=== PATIENT | male | born 1990 | race Caucasian/White ===

== ENCOUNTER 2024-12-14 10:37 | Emergency (ER) | payer BC, SELFPAY ==
[2024-12-14 10:37] VITALS: BP 151/102; PULSE 69; RESP 16; TEMP 36.5; O2SAT 100; BMI 34.2
--- NOTE | 2024-12-14 11:26 | EX.ED.DYSGE1 ---
HPI History of Present Illness Chief Complaint: Abd Pain Informant: patient and spouse/S.O. Narrative Narrative: 33-year-old male presenting to the emergency room with a chief complaint of abdominal cramping. Patient notes suprapubic abdominal cramping for 1 week. He notes more frequent bowel movements that have been formed but small amounts. He denies any urinary symptoms. No reported fever. He does note nausea. He states he went to urgent care and was sent to the emergency department. He notes no prior abdominal surgeries. No history of kidney stones. He denies any black bloody or mucousy stools. No weight loss. [facility] Medical History Sensorineural hearing loss Anxiety and depression Asthma Obesity Home Medications ?Medication ?Instructions ?Recorded ?Last Taken ?Type albuterol sulfate 90 mcg/actuation 6.7 g IH PRN ##1 02/24/14 Unknown Rx aerosol inhaler (Proventil HFA) prednisone 20 mg tablet 40 mg (2 x 20 mg) PO DAILY ##7 02/24/14 Unknown Rx amoxicillin 875 mg-potassium 875 mg PO Q12H #20 TABLETS 12/14/24 Unknown Rx clavulanate 125 mg tablet hydrocodone-acetaminophen 5-325mg 1 tab PO Q4H PRN PRN Pain 3 days 12/14/24 Unknown Rx 5mg-325mg #12 TABLETS ibuprofen 600 mg tablet 600 mg PO Q8H PRN PRN pain #20 12/14/24 Unknown Rx TABLETS sertraline 50 mg tablet 50 mg PO DAILY 12/14/24 Unknown History Allergy/AdvReac Type Severity Reaction Status Date / Time No Known Allergies Allergy Verified 12/14/24 10:37 Social History Smoking Status: Never smoker ROS ROS ED Constitutional Constitutional ED: Denies chills, fever(s) or weight loss Eyes Eyes: Denies change in vision or diplopia ENT ENT ED: Denies ear pain, rhinorrhea or sore throat Cardiovascular Cardiovascular: Denies chest pain, orthopnea, palpitations or racing heartbeat Respiratory/Chest Respiratory/Chest: Denies cough, dyspnea or orthopnea Gastrointestinal Gastrointestinal: Reports abdominal pain, nausea and other Details: See history of present illness ; Denies diarrhea or vomiting Genitourinary Genitourinary ED: Denies dysuria, hematuria or urinary frequency Musculoskeletal Musculoskeletal: Denies arthralgias or myalgias Integumentary Denies abscess or rash Neurologic Neurologic: Denies headache(s) or weakness Psychiatric Psychiatric: Denies anxiety, depression, suicidal ideation or suicidal thoughts Endocrine Endocrinology: Denies polydipsia, polyphagia or polyuria Allergic/Immunologic Allergic/Immunologic ED: Denies mouth swelling, tongue swelling or urticaria EXAM Physical Exam Const Vital Signs: 12/14/24 10:37 12/14/24 12:37 Temperature 97.7 F L Temperature Source Oral Pulse Rate 69 87 Respiratory Rate 16 16 Blood Pressure 151/102 H 144/93 H Blood Pressure Mean 118 110 Pulse Ox 100 99 Oxygen Delivery Method Room Air Positive well nourished and well developed General Appearance ED: well developed and NAD HEENT Reports normocephalic, head/scalp atraumatic and moist mucous membranes Eyes PERRL and EOMs intact bilaterally Neck no lymphadenopathy, supple and no JVD Resp normal respiratory effort and clear to auscultation bilaterally Cardio regular rate, regular rhythm and no murmurs GI Auscultation: hypoactive bowel sounds Palpation: soft and tender RLQ; Negative for guarding or rebound tenderness present Back/Spine no CVA tenderness and normal ROM Extremity normal to inspection General Extremety ED: Negative for edema General Extremity: Negative for edema Neuro oriented x3 and CN's II-XII intact bilaterally Sensorium / Orientation: alert Motor Exam: strength 5/5 throughout Psych mental status grossly normal Mood & Affect: Negative for depressed or tearful Skin no rashes or lesions noted and no wounds MDM MDM MDM Narrative Medical decision making narrative: Differential diagnosis includes but not limited to diverticulitis colitis volvulus UTI kidney stone appendicitis intra-abdominal abscess/perforation bowel obstruction Patient's white count 9.7 creatinine 0[address] of the pelvis with IV contrast was obtained. This demonstrates focal area of inflammation in the sigmoid colon. Please see radiologist read for full details. Spoke with the patient and his . He is otherwise well-appearing afebrile with normal white count. He has no diagnosis of colitis. I will place him on Augmentin as well as anti-inflammatories and pain medication. We recommend follow-up colonoscopy. We talked about return instructions. We talked about complications. History & Record Review Discussion w/independent historian: Patient and Significant other Lab Data Attestation: I reviewed the patient's lab results. Labs: Laboratory Results - last 24 hr 12/14/24 12/14/24 11:06 11:50 WBC 9.7 RBC 4.92 Hgb 14.3 Hct 43.6 MCV 88.6 MCH 29.1 MCHC 32.8 RDW Std Deviation 42.0 RDW Coeff of Yury 12.9 Plt Count 316 MPV 9.6 Immature Gran % (Auto) 0.300 Neut % (Auto) 63.6 Lymph % (Auto) 20.7 Young % (Auto) 11.0 H Eos % (Auto) 4.2 Baso % (Auto) 0.2 Absolute Neuts (auto) 6.2 Absolute Lymphs (auto) 2.01 Nucleated RBC % 0 Sodium 137 Potassium 4.1 Chloride 101 Carbon Dioxide 25.4 Anion Gap 11 BUN 13 Creatinine 0.99 Estim Creat Clear Calc 133.29 Est GFR (MDRD) Non-Af 103 BUN/Creatinine Ratio 12.9 Glucose 97 Calcium 9.1 Urine Color Yellow Urine Clarity Clear Urine pH 7.0 Ur Specific [place] 1.010 Urine Protein 15 H Urine Glucose (UA) Normal Urine Ketones Negative Urine Occult Blood Negative Urine Nitrite Negative Urine Bilirubin Negative Urine Urobilinogen Normal Ur Leukocyte Esterase Negative Urine RBC 0 SEEN Urine WBC 0 SEEN Ur Squamous Epith Cells 0 SEEN Urine Bacteria 0 SEEN Urine Mucus 0 SEEN Radiography Diagnostic Testing: Clinical Impression(s) from Imaging Studies Abdomen/Pelvis CT 12/14/24 11:50 IMPRESSION: 1. Normal appendix. 2. Mucosal thickening in the descending colon and sigmoid colon consistent with colitis. No bowel obstruction or abscess. 3. Hepatomegaly with fatty infiltration. Reading Location: [facility] Discharge Plan Triage Chief Complaint: Abd Pain ED Provider: Romain Boyer Dx/Rx/DC Orders Clinical Impression: Abdominal pain, Colitis Instructions: Diverticulitis Dc Prescriptions: New ibuprofen 600 mg tablet 600 mg PO Q8H PRN PRN (Reason: pain) Qty: 20 0RF amoxicillin-pot clavulanate 875-125 mg tablet 875 mg PO Q12H Qty: 20 0RF hydrocodone-acetaminophen 5-325 mg tablet 1 tab PO Q4H PRN PRN (Reason: Pain) 3 Days Qty: 12 0RF No Action prednisone 20 MG tablet 40 mg PO DAILY Qty: 7 0RF albuterol sulfate [Proventil HFA] 6.7 GM HFA aerosol inhaler 6.7 g IH PRN Qty: 1 2RF sertraline 50 mg tablet 50 mg PO DAILY Primary Care Provider: Rory Mckinney Referrals: Rory Mckinney DO [Primary Care Provider] - 3-5 Days if not improving Friend,DO Ray [Med Staff - Active Staff] - As soon as possible (for colonoscopy) Print Language: Maori Disposition Disposition: Home, Self Care Discharge Date/Time: 12/14/24 13:52
[2024-12-14 11:38] LABS: Absolute Lymphocyte Count 2.01 X10^3/uL (0.83-4.51); Absolute Neutrophil Count 6.2 X10^3/uL (2.0-7.7); Basophil# 0.02 X10^3/uL; Basophil% 0.2 % (0-1); Eosinophil# 0.41 X10^3/uL; Eosinophils% 4.2 % (0-5); Hematocrit 43.6 % (40-54); Hemoglobin 14.3 g/dL (13.0-16.5); Lymphocyte # 2.01 X10^3/ul (0.83-4.51); Lymphocyte % 20.7 % (19-41); Mean Corp Hgb Conc 32.8 g/dL (32-36); Mean Corpuscular Hgb 29.1 pg (27.0-32.0); Mean Corpuscular Volume 88.6 fL (80-94); Mean Platelet Vol. 9.6 fl (6.2-12.0); Monocyte# 1.07 X10^3/uL; NRBC Flagged by Analyzer 0 % (0-5); Neutrophil # 6.16 X10^3/uL (2.7-7.7); Neutrophil % 63.6 % (47-70); Platelet Count 316 K/mm3 (150-450); RBC Distribution Width CV 12.9 % (11.6-14.6); Red Blood Count 4.92 M/mm3 (4.6-6.2); White Blood Count 9.7 K/mm3 (4.4-11.0)
--- NOTE | 2024-12-14 11:50 | CT_ITS ---
EXAM: CT Abdomen, Pelvis and Lumbar Spine With Intravenous Contrast CLINICAL INDICATION: ABDOMINAL PAIN TECHNIQUE: Axial computed tomography images of the abdomen, pelvis and lumbar spine with intravenous contrast. This CT exam was performed using one or more of the following dose reduction techniques: automated exposure control, adjustment of the mA and/or kV according to patient size, and/or use of iterative reconstruction technique. COMPARISON: No relevant prior studies available. FINDINGS: LUNG BASES: Unremarkable. No mass. No consolidation. ABDOMEN: LIVER: Hepatomegaly with fatty infiltration. GALLBLADDER AND BILE DUCTS: Unremarkable. No calcified stones. No ductal dilation. PANCREAS: Unremarkable. No mass. No ductal dilation. SPLEEN: Unremarkable. No splenomegaly. ADRENALS: Unremarkable. No mass. KIDNEYS AND URETERS: Unremarkable. No solid mass. No hydronephrosis. STOMACH AND BOWEL: Mucosal thickening in the descending colon and sigmoid colon consistent with colitis. No obstruction. PELVIS: APPENDIX: Normal appendix. BLADDER: Unremarkable. No mass. REPRODUCTIVE: Unremarkable as visualized. LUMBAR SPINE: VERTEBRAE: Unremarkable. No acute fracture. DISCS/SPINAL CANAL/NEURAL FORAMINA: No acute findings. No significant spinal canal stenosis. ABDOMEN and PELVIS: INTRAPERITONEAL SPACE: Unremarkable. No free air. No significant fluid collection. BONES/JOINTS: No acute fracture. No dislocation. SOFT TISSUES: Unremarkable. VASCULATURE: Scattered calcified atherosclerotic disease of aorta. No abdominal aortic aneurysm. LYMPH NODES: Unremarkable. No enlarged lymph nodes. CT/Abdomen/Pelvis W IV Cont ONLY IMPRESSION: 1. Normal appendix. 2. Mucosal thickening in the descending colon and sigmoid colon consistent wit h colitis. No bowel obstruction or abscess. 3. Hepatomegaly with fatty infiltration. Reading Location: [facility]
[2024-12-14 11:53] LABS: Bacteria 0 SEEN /hpf (None Seen); Mucous, Urine 0 SEEN /hpf (<or=2+); Squamous Epithelial Cells - UA 0 SEEN /hpf (0-5); White Blood Cells 0 SEEN /hpf (0-5)
[2024-12-14 11:59] LABS: Color, Urine Yellow (Yellow); Glucose, Dipstick Normal (Normal); Ketone-Dipstick Negative (Negative); Leukocyte Esterase-Dipstick Negative /ul (Negative); Nitrite-Dipstick Negative (Negative); Occult Blood-Urine Negative /ul (Negative); Protein-Dipstick 15 mg/dl (Negative); Urine Bilirubin Dipstick Negative (Negative); Urine Clarity Clear (Clear); Urine Urobilinogen Normal (Normal)
[2024-12-14 12:04] LABS: Red Blood Cells-Urine 0 SEEN /hpf (0-5)
[2024-12-14 12:37] VITALS: BP 144/93; PULSE 87; RESP 16; O2SAT 99
[2024-12-14 13:30] LABS: Anion Gap 11 (5-15); BUN 13 mg/dL (4-19); BUN/Creat Ratio 12.9 RATIO (10-20); Calcium,Total 9.1 mg/dL (7.6-11.0); Carbon Dioxide 25.4 mmol/L (21.0-32.0); Chloride 101 mmol/L (98-108); Creatinine, Serum 0.99 mg/dL (0.70-1.20); EST Glomerular Filtration Rate 103 (>60); Estimated Creatinine Clearance 133.29 ml/min (50-250); Glucose 97 mg/dL (70-99); Potassium 4.1 mmol/L (3.3-5.1); Sodium Level 137 mmol/L (133-145)
== END 2024-12-14 13:52 | disposition home or self-care (01) ==
PROVIDERS: Emergency Provider Emergency Medicine; PCP Family Medicine; Referring Provider Emergency Medicine; Visit Provider Emergency Medicine
DX: R10.9 Unspecified abdominal pain (principal); K52.9 Noninfective gastroenteritis and colitis, unspecified; J45.909 Unspecified asthma, uncomplicated; F41.9 Anxiety disorder, unspecified; F32.A Depression, unspecified; Z79.899 Other long term (current) drug therapy
CPT/HCPCS: 74177; 80048; 81001; 85025; 99283; Q9967; A4216

== ENCOUNTER 2025-01-04 19:42 | Emergency (ER) | payer BC, SELFPAY ==
[2025-01-04 19:43] VITALS: BP 141/89; PULSE 65; RESP 15; TEMP 36.4; O2SAT 97; BMI 33.7
[2025-01-04 21:43] VITALS: BP 146/82; PULSE 65; RESP 18; O2SAT 98
[2025-01-04 23:00] VITALS: BP 95/54; PULSE 63; RESP 8; O2SAT 96
[2025-01-04 23:03] LABS: Absolute Lymphocyte Count 2.77 X10^3/uL (0.83-4.51); Absolute Neutrophil Count 3.9 X10^3/uL (2.0-7.7); Basophil# 0.03 X10^3/uL; Basophil% 0.4 % (0-1); Eosinophil# 0.58 X10^3/uL; Eosinophils% 7.1 % (0-5); Hematocrit 45.7 % (40-54); Hemoglobin 15.9 g/dL (13.0-16.5); Lymphocyte # 2.77 X10^3/ul (0.83-4.51); Lymphocyte % 33.7 % (19-41); Mean Corp Hgb Conc 34.8 g/dL (32-36); Mean Corpuscular Hgb 30.3 pg (27.0-32.0); Mean Platelet Vol. 9.6 fl (6.2-12.0); Monocyte# 0.89 X10^3/uL; Monocyte% 10.8 % (0-10); NRBC Flagged by Analyzer 0 % (0-5); Neutrophil # 3.94 X10^3/uL (2.7-7.7); Neutrophil % 47.9 % (47-70); Platelet Count 261 K/mm3 (150-450); RBC Distribution Width CV 13.1 % (11.6-14.6); RBC Distribution Width SD 41.4 fl (35.1-43.9); Red Blood Count 5.25 M/mm3 (4.6-6.2); White Blood Count 8.2 K/mm3 (4.4-11.0)
[2025-01-04 23:39] VITALS: BP 153/55; PULSE 59; RESP 12; O2SAT 96
--- NOTE | 2025-01-04 23:41 | EDS_ITS ---
HPI History of Present Illness Chief Complaint: GI Bleed Narrative Narrative: Patient is a 34-year-old male past medical history of anxiety, depression, asthma who presented to the emergency department the chief complaint of having multiple bowel movements today that had blood noted in the toilet. Patient states that he few weeks ago was diagnosed with diverticulitis after having a CAT scan he completed the course of antibiotics and states that he been doing well. He states that today he states he was not feeling well overall while at work and notes that he went to the restroom and had a episode of diarrhea. He states that he went back to the bathroom several times and then started having some blood noted in his stool that was bright red. Patient states he does have a colonoscopy scheduled that his primary care physician was wanting him to obtain. He states that his last bowel movement was around 6 PM this evening and has not had any since then. Patient states that he has not any blood thinning medications. He states that overall he feels well at this point time. [facility] Medical History Sensorineural hearing loss Anxiety and depression Asthma Obesity Home Medications ?Medication ?Instructions ?Recorded ?Last Taken ?Type sertraline 50 mg tablet 50 mg PO DAILY 12/14/24 Unkn own History cholecalciferol (vitamin D3) 50 50 mcg PO DAILY Unknown History mcg (2,000 unit) tablet (D3 DOTS) diphenhydramine HCl 25 mg capsule 50 mg PO QHS 5 Unknown History (Aler-Cap) Allergy/AdvReac Type Severity Reaction Status Date / Time No Known Allergies Allergy Verified 01/04/25 19:48 Social History Smoking Status: Never smoker ROS ROS ED ROS Narrative Constitutional: Denies fevers, chills, headaches, lightness, dizziness Eyes: Denies change in vision double vision blurry vision Cardiovascular: Denies chest pain Respiratory: Denies shortness of breath Abdomen: Denies abdominal pain nausea vomiting complains of hematochezia as noted above : Denies urinary symptoms Neurological: Denies numbness, weakness, tingling Musculoskeletal: Denies back pain Skin: Denies rashes or lesions EXAM Physical Exam Narrative Exam Narrative: General: Patient lying in bed rest comfortably did not appear to be in acute distress Head: Atraumatic, normocephalic Eyes: PERRL bilaterally, EOMI bilateral, no conjunctival injection noted Neck: Soft, supple, trachea midline Cardiovascular: Regular rate and rhythm no murmurs gallops rubs noted Abdomen: Soft, nondistended, no tenderness palpation Rectal: Patient has no evidence of hemorrhoids noted on exam Extremities: +5/5 strength noted in the bilateral upper and lower extremities, radial pulse +2/4 in the bilateral extremities Neurological: Patient following commands knew that he was at [facility] there is 2024 Skin: Warm, dry, intact no rashes or lesions noted Const Vital Signs: 01/04/25 19:43 01/04/25 21:43 01/04/25 23:00 Temperature 97.5 F L Temperature Source Temporal Pulse Rate 65 65 63 Respiratory Rate 15 18 8 L Blood Pressure 141/89 H 146/82 H 95/54 L Blood Pressure Mean 106 103 67 Pulse Ox 97 98 96 Oxygen Delivery Method Room Air Room Air Room Air 01/04/25 23:39 Temperature Temperature Source Pulse Rate 59 L Respiratory Rate 12 Blood Pressure 153/55 H Blood Pressure Mean 87 Pulse Ox 96 Oxygen Delivery Method Room Air MDM MDM MDM Narrative Medical decision making narrative: Patient is a 34-year-old male who presented to the emergency department with concern of bright red blood per rectum after having bowel movements however once again he has not had an episode since 6 PM. Patient states that he did follow- up with his primary care physician earlier this morning and noted that he had blood work obtained and noted that his blood counts were normal. Patient states that he was still concerned as well as his family numbers therefore he came here for the evaluation management. On the differential diagnose includes but not limited to hemorrhoid, diverticulosis, AV malformation. Once workup is obtained reviewed he will be reevaluated. Workup was started prior to my evaluation. Patient CBC was reviewed showed no evidence leukocytosis white blood count normal at 8.2, hemoglobin stable 15.9, platelet count was noted be 261. Patient sodium normal 130, potassium 3.7, creatinine normal at 1.08. Patient AST and ALT were 33 and 60 respectively. Patient lipase normal at 40. It is 12:27 AM on 01/05/2025 and the patient still has not had any more bloody bowel movements since 6 PM on 01/04/2025. [place] Score for Safe Discharge After Lower GI Bleed from [email or web address] on 01/05/2025 All calculations should be rechecked by clinician prior to use RESULT SUMMARY: 7 points [place] Score () 96 % Probability of safe discharge (absence of rebleeding, blood transfusion, therapeutic intervention, 28 day readmission, or ). Consider discharge, with appropriate precautions. INPUTS: Age, years ?> 0 = <40 Sex ?> 1 = Male Previous lower GI bleeding admission ?> 0 = No ERIC findings ?> 0 = No blood Heart rate, bpm ?> 0 = <70 Systolic blood pressure, mmHg ?> 2 = 130-159 Hemoglobin, g/L (g/dL) ?> 4 = 130-159 (13-15.9) Did discuss results with the patient he would like to go home at this point in time. He is advised to follow-up with his primary care physician outpatient setting as well as follow-up with gastroenterology for his colonoscopy. He is encouraged return with worsening symptoms or any concerns. He is agreeable this plan all question concerns answered he was discharged home in stable condition. Lab Data Labs: Laboratory Results - last 24 hr 01/04/25 22:50 WBC 8.2 RBC 5.25 Hgb 15.9 Hct 45.7 MCV 87.0 MCH 30.3 MCHC 34.8 RDW Std Deviation 41.4 RDW Coeff of Yury 13.1 Plt Count 261 MPV 9.6 Immature Gran % (Auto) 0.100 Neut % (Auto) 47.9 Lymph % (Auto) 33.7 [place] % (Auto) 10.8 H Eos % (Auto) 7.1 H Baso % (Auto) 0.4 Absolute Neuts (auto) 3.9 Absolute Lymphs (auto) 2.77 Nucleated RBC % 0 Sodium 138 Potassium 3.7 Chloride 102 Carbon Dioxide 24.2 Anion Gap 13 BUN 11 Creatinine 1.08 Estim Creat Clear Calc 120.30 Est GFR (MDRD) Non-Af 92 BUN/Creatinine Ratio 10.3 Glucose 94 Calcium 9.3 Total Bilirubin 0.51 AST 33 ALT 60 H Alkaline Phosphatase 119 Total Protein 7.8 Albumin 4.6 Globulin 3.2 Albumin/Globulin Ratio 1.4 Lipase 40 Discharge Plan Triage Chief Complaint: GI Bleed ED Provider: Gavin Buchanan Dx/Rx/DC Orders Clinical Impression: Lower gastrointestinal bleed Prescriptions: No Action cholecalciferol (vitamin D3) [D3 DOTS] 50 mcg (2,000 unit) tablet 50 mcg PO DAILY diphenhydramine HCl [Aler-Cap] 25 mg capsule 50 mg PO QHS sertraline 50 mg tablet 50 mg PO DAILY Primary Care Provider: Rory Mckinney Referrals: Rory Mckinney, DO [Primary Care Provider] - Activity Restrictions/Additional Instructions: Your blood work here today was normal and did not show any acute findings. 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 Return with worsening symptoms or any other concerns. Print Language: Bangladeshi Disposition Disposition: Home, Self Care
[2025-01-05 00:07] LABS: Lipase 40 U/L (13-75)
[2025-01-05 00:13] LABS: ALB/GLOB Ratio 1.4 RATIO (0.9-2.4); AST(SGOT) 33 U/L (<=37); Alanine Aminotransfer ALT/SGPT 60 U/L (<=46); Albumin, Serum 4.6 g/dL (3.5-5.0); Alkaline Phosphatase 119 U/L (40-129); Anion Gap 13 (5-15); BUN 11 mg/dL (4-19); BUN/Creat Ratio 10.3 RATIO (10-20); Calcium,Total 9.3 mg/dL (7.6-11.0); Carbon Dioxide 24.2 mmol/L (21.0-32.0); Chloride 102 mmol/L (98-108); Creatinine, Serum 1.08 mg/dL (0.70-1.20); EST Glomerular Filtration Rate 92 (>60); Globulin 3.2 g/dL (2.2-4.2); Glucose 94 mg/dL (70-99); Potassium 3.7 mmol/L (3.3-5.1); Protein, Total 7.8 g/dL (5.9-8.4); Sodium Level 138 mmol/L (133-145); Total Bilirubin 0.51 mg/dL (0.00-1.30)
[2025-01-05 00:47] VITALS: BP 136/87; PULSE 66; RESP 16; TEMP 36.9; O2SAT 100
== END 2025-01-05 00:47 | disposition home or self-care (01) ==
PROVIDERS: Emergency Provider Emergency Medicine; PCP Family Medicine; Visit Provider Emergency Medicine
DX: K92.2 Gastrointestinal hemorrhage, unspecified (principal); R19.7 Diarrhea, unspecified; J45.909 Unspecified asthma, uncomplicated
CPT/HCPCS: 80053; 83690; 85025; 99283; A4216